=== PATIENT | female | born 1970 | race African-American/Black ===

== ENCOUNTER 2018-04-27 13:11 | Inpatient (IN) | payer OTHER ==
[2018-04-27 14:34] VITALS: BMI 23.7
--- NOTE | 2018-04-27 14:52 | HP ---
COWS - Scale Resting Pulse: 0= DE 80 or Below Sweatin= Chills/Flushing Restless Observation: 1= Difficult to Sit Still Pupil Size: 0= Normal to Room Light Bone or Joint Aches: 1= Mild Discomfort Runny Nose/ Eye Tearin= Nasal Congestion GI Upset > 30mins: 2= Nausea/Diarrhea Tremor Observation: 2= Slight Tremor Visible Yawning Observation: 1= 1-2x During Session Anxiety or Irritability: 2=Irritable/Anxious Goose Flesh Skin: 0=Smooth Skin COWS Score: 11 CIWA Score Nausea/Vomitin Muscle Tremors: 3 Anxiety: 4-Mod. Anxious/Guarded Agitation: 0-Normal Activity Paroxysmal Sweats: 1-Minimal Palms Moist Orientation: 1-Uncertain about Date Tacttile Disturbances: 1-Very Mild Itch/Numbness Auditory Disturbances: 0-None Visual Disturbances: 1-Very Mild Sensitivity Headache: 2-Mild CIWA-Ar Total Score: 16 - Admission Criteria OAS Guidelines: Admission for Medically Managed Detox: Requires at least one of the followin. CIWA greater than 12 2. Seizures within the past 24 hours 3. Delirium tremens within the past 24 hours 4. Hallucinations within the past 24 hours 5. Acute intervention needed for co occurring medical disorder 6. Acute intervention needed for co occurring psychiatric disorder 7. Severe withdrawal that cannot be handled at a lower level of care (continued vomiting, continued diarrhea, abnormal vital signs) requiring intravenous medication and/or fluids 8. Patient presents the following: CIWA greater than 12 Admission Criteria Met: Admission criteria met Admission ROS [facility] - [facility] Chief Complaint: I was doing good, I'm so sick, I need help Allergies/Adverse Reactions: Allergies Allergy/AdvReac Type Severity Reaction Status Date / Time No Known Allergies Allergy Verified 04/27/18 14:41 History of Present Illness: 47 yo woman here for detox from alcohol and opiates - also using cocaine. No seizures, has had black outs and overdoses. Patient reports being drug free for ten years but relapsed three years ago triggered by friend's . Never on methadone program (urine tox + methadone but she does not know why). Exam Limitations: Clinical Condition - Ebola screening Have you traveled outside of the country in the last 21 days: No (N) Have you had contact with anyone from an Ebola affected area: No Have you been sick,other than usual withdrawal symptoms: No Do you have a fever: No - Review of Systems Constitutional: Chills, Loss of Appetite, Malaise, Night Sweats, Changes in sleep, Weakness EENT: reports: Blurred Vision, Nose Congestion Respiratory: reports: No Symptoms reported Cardiac: reports: No Symptoms Reported GI: reports: Diarrhea, Nausea, Poor Appetite, Indigestion : reports: Dysuria Musculoskeletal: reports: No Symptoms Reported Integumentary: reports: No Symptoms Reported Neuro: reports: Numbness, Tremors Endocrine: reports: No Symptoms Reported Hematology: reports: No Symptoms Reported Psychiatric: reports: Judgement Intact, Mood/Affect Appropiate, Orientated x3, Anxious Other Systems: Reviewed and Negative Patient History - Patient Medical History Hx Asthma: No Hx Chronic Obstructive Pulmonary Disease (COPD): No Hx Cancer: No Hx Cardiac Disorders: No Hx Congestive Heart Failure: No Hx Hypertension: Yes Hx Hypercholesterolemia: No Hx Pacemaker: No HX Cerebrovascular Accident: No Hx Seizures: No Hx Dementia: No Hx Diabetes: Yes (with neuropathy) Hx Gastrointestinal Disorders: No Hx Liver Disease: No Hx Genitourinary Disorders: No Hx Sexually Transmitted Disorders: No Hx Renal Disease (ESRD): No Hx Thyroid Disease: No Hx Human Immunodeficiency Virus (HIV): No Hx Hepatitis C: No Hx Depression: Yes (denies meds or hospitalizations) Hx Suicide Attempt: No Hx Bipolar Disorder: No Hx Schizophrenia: No - Patient Surgical History Past Surgical History: No - PPD History Previous Implant?: Yes Documented Results: Negative w/proof Implanted On Prior R Admission?: No PPD to be Administered?: Yes - Reproductive History Patient is a Female of Child Bearing Age (11 -55 yrs old): Yes - Smoking Cessation Smoking history: Current every day smoker Have you smoked in the past 12 months: Yes Aproximately how many cigarettes per day: 5 Initiated information on smoking cessation: Yes 'Breaking Loose' booklet given: 04/27/18 (give on floor) - Substance & Tx. History Hx Alcohol Use: Yes Hx Substance Use: Yes Substance Use Type: Alcohol, Cocaine, Heroin, Marijuana, Opiates Hx Substance Use Treatment: Yes (detox , rehab years ago) - Substances Abused alcohol Route: Oral Frequency: Daily Amount used: 1 pint sandra; four 4-locos Age of first use: 20 Date of Last Use: 04/26/18 heroin Route: Injection Frequency: Daily Amount used: 1 bundle Age of first use: 20 Date of Last Use: 04/26/18 cocaine Route: Inhalation Frequency: Daily Amount used: 5 bags Age of first use: 20 Date of Last Use: 04/26/18 marijuana Route: Smoking Frequency: Daily Amount used: 1 blunt Age of first use: 25 Date of Last Use: 04/26/18 Family Disease History - Family Disease History Family Disease History: Other: Father (unkown - adopted), Mother (unknown - adopted), Son (two - healthy), Daughter (three - healthy) Admission Physical Exam [facility] - Vital Signs Vital Signs: Vital Signs - 24 hr 04/27/18 14:32 Temperature 95.9 F L Pulse Rate 74 Respiratory 17 Rate Blood Pressure 101/64 - Physical General Appearance: Yes: Nourished, Appropriately Dressed, Moderate Distress, Tremorous, Anxious HEENTM: Yes: EOMI, Hearing grossly Normal, Normocephalic, Normal Voice, Nasal Congestion Respiratory: Yes: Normal Breath Sounds, No Respiratory Distress Neck: Yes: No masses,lesions,Nodules Breast: Yes: Breast Exam Deferred Cardiology: Yes: Regular Rhythm, Regular Rate Abdominal: Yes: Soft Genitourinary: Yes: Frequency Back: Yes: Normal Inspection Musculoskeletal: Yes: full range of Motion, Gait Steady Extremities: Yes: Normal Inspection, Normal Range of Motion, Non-Tender Neurological: Yes: Alert, Motor Strength 5/5, Normal Mood/Affect, Normal Response Integumentary: Yes: Normal Color, Warm, Track Perry (no abscess noted - both arms) Lymphatic: Yes: Within Normal Limits - Diagnostic (1) Opioid dependence with withdrawal Current Visit: Yes Status: Chronic (2) Alcohol dependence with uncomplicated withdrawal Current Visit: Yes Status: Chronic (3) Nicotine dependence Current Visit: Yes Status: Chronic Qualifiers: Nicotine product type: cigarettes Substance use status: uncomplicated Qualified Code(s): F17.210 - Nicotine dependence, cigarettes, uncomplicated (4) Diabetes mellitus treated with oral medication Current Visit: Yes Status: Chronic (5) Neuropathy Current Visit: Yes Status: Chronic (6) Marijuana dependence Current Visit: Yes Status: Chronic (7) HTN (hypertension) Current Visit: Yes Status: Chronic Qualifiers: Hypertension type: essential hypertension Qualified Code(s): I10 - Essential (primary) hypertension Cleared for Admission [facility] - Detox or Rehab [facility] Level of Care: Medically Managed Detox Regimen/Protocol: Methadone/Librium [facility] Breath Alcohol Content Breath Alcohol Content: 0 Urine Pregancy Test - Result Urine Test Results: Negative - NO Line Present Urine Drug Screen - Results Drug Screen Negative: No Urine Drug Screen Results: THC-Marijuana, INDIA-Cocaine, OPI-Opiates, AMP- Amphetamines, MET-Methamphetamine Inpatient Rehab Admission - Rehab Decision to Admit Inpatient rehab admission?: No
[2018-04-27] MEDS ORDERED: MAGNESIUM HYDROX 2400MG/30ML ORAL SUSPENSION 30 ML CUP PO PRN (14:59)
[2018-04-27] MEDS ORDERED: MELATONIN 5 MG TABLETS PO PRN (14:59)
[2018-04-27] MEDS ORDERED: chlordiazePOXIDE HCL 10 MG CAPSULE PO PRN (14:59)
[2018-04-27] MEDS ORDERED: ACETAMINOPHEN 325 MG TABLET (FP) PO PRN (14:59)
[2018-04-27] MEDS ORDERED: MAG HYDROX/AL HYDROX/SIMETH 30 ML UNIT-DOSE CUP PO PRN (14:59)
[2018-04-27] MEDS ORDERED: MAGNESIUM CITRATE 300 ML BOTTLE PO PRN (14:59)
[2018-04-27] MEDS ORDERED: MENTHOL/PHENOL 1 EACH UD MM PRN (14:59)
[2018-04-27] MEDS ORDERED: NICOTINE POLACRILEX 4 MG GUM BUC PRN (14:59)
[2018-04-27] MEDS ORDERED: METHOCARBAMOL 500 MG TABLET PO PRN (14:59)
[2018-04-27] MEDS ORDERED: BISMUTH SUBSALICYLATE 524 MG/30 ML UD PO PRN (14:59)
[2018-04-27] MEDS ORDERED: cloNIDine HCL 0.1 MG TABLET PO PRN (14:59)
[2018-04-27] MEDS ORDERED: chlordiazePOXIDE HCL 25 MG CAPSULE PO ONE (16:45)
[2018-04-27] MEDS ORDERED: METHADONE HCL 10 MG TABLET PO ONE (16:45)
[2018-04-27] MEDS: GABAPENTIN 300 MG CAPSULE (FP) PO SCH ×2 (17:48→23:09)
[2018-04-27] MEDS ORDERED: METHADONE HCL 10 MG TABLET (FOR DETOX USE ONLY) PO ONE (23:00)
[2018-04-27] MEDS: chlordiazePOXIDE HCL 25 MG CAPSULE PO SCH (23:09)
[2018-04-27] MEDS: THIAMINE HCL 100 MG TABLET (FP) PO SCH (23:11)
[2018-04-28] MEDS: chlordiazePOXIDE HCL 25 MG CAPSULE PO SCH ×2 (05:49→13:30)
[2018-04-28] MEDS: GABAPENTIN 300 MG CAPSULE (FP) PO SCH ×3 (07:18→23:17)
[2018-04-28] MEDS: sitaGLIPtin PHOSPHATE 100 MG TABLET (FP) PO SCH (07:18)
[2018-04-28] MEDS ORDERED: METHADONE HCL 10 MG TABLET (FOR DETOX USE ONLY) PO ONE (10:00)
[2018-04-28] MEDS: PRENATAL VITAMINS W/ FOLIC ACID TABLET (FP) PO SCH (10:36)
[2018-04-28] MEDS: LISINOPRIL 10 MG TABLET (FP) PO SCH (10:36)
[2018-04-28] MEDS: amLODIPine BESYLATE 10 MG TABLET (FP) PO SCH (10:36)
[2018-04-28 10:50] LABS: ALBUMIN 2.9 g/dl (3.4-5.0); ALK PHOS 108 U/L (45-117); ANION GAP 8 MMOL/L (8-16); BILIRUBIN,TOTAL 0.1 mg/dL (0.2-1); BLOOD UREA NITROGEN 12 mg/dL (7-18); CALCIUM 8.7 mg/dL (8.5-10.1); CHLORIDE 104 mmol/L (98-107); CO2 27 mmol/L (21-32); GLUCOSE,RANDOM 50 mg/dL (74-106); POTASSIUM 3.3 mmol/L (3.5-5.1); SGOT/AST 16 U/L (15-37); SGPT/ALT 19 U/L (13-61); SODIUM 139 mmol/L (136-145)
[2018-04-28] MEDS: IBUPROFEN 400 MG TABLET (FP) PO PRN (11:27)
[2018-04-28 11:33] LABS: HEMATOCRIT 35.3 % (32.4-45.2); HEMOGLOBIN 11.8 GM/dL (10.7-15.3); MCH 28.8 pg (25.7-33.7); MCHC 33.5 g/dl (32.0-36.0); MEAN CELL VOLUME 85.9 fl (80-96); MEAN PLT VOLUME 7.8 fl (7.5-11.1); PLATELET COUNT 314 K/MM3 (134-434); RDW 15.8 % (11.6-15.6); WHITE BLOOD COUNT 7.9 K/mm3 (4.0-10.0)
--- NOTE | 2018-04-28 11:57 | EKG ---
Test Reason : Blood Pressure : / mmHG Vent. Rate : 063 BPM Atrial Rate : 063 BPM P-R Int : 142 ms QRS Dur : 084 ms QT Int : 458 ms P-R-T Axes : 068 068 040 degrees QTc Int : 468 ms NORMAL SINUS RHYTHM NORMAL ECG NO PREVIOUS ECGS AVAILABLE Confirmed by HERMES MUHAMMAD, MICHELLE ([id number]) on 04/28/2018 11:57:22 AM Referred By: Confirmed By:MICHELLE MIRZA MD
--- NOTE | 2018-04-28 13:34 | CONSULT ---
S Psychiatric Consult - Data Date of interview: 04/28/18 Identifying data: Ms Muñiz is a 47 years old Black female
--- NOTE | 2018-04-28 15:43 | PN ---
S CIWA - CIWA Score Nausea/Vomitin Muscle Tremors: 4-Moderate,w/Arms Extend Anxiety: 4-Mod. Anxious/Guarded Agitation: 3 Paroxysmal Sweats: 3 Orientation: 0-Oriented Tacttile Disturbances: 1-Very Mild Itch/Numbness Auditory Disturbances: 0-None Visual Disturbances: 0-None Headache: 1-Very Mild CIWA-Ar Total Score: 18 BHS COWS - Scale Resting Pulse: 1= RI 81-100 Sweatin=Flushed/Facial Moisture Restless Observation: 3= Extraneous Movement Pupil Size: 0= Normal to Room Light Bone or Joint Aches: 2= Severe Diffuse Aches Runny Nose/ Eye Tearin= Runny Nose/Eyes GI Upset > 30mins: 3= Vomiting/Diarrhea Tremor Observation of Outstretched Hands: 2= Slight Tremor Visible Yawning Observation: 0= None Anxiety or Irritability: 2=Irritable/Anxious Goose Flesh Skin: 0=Smooth Skin COWS Score: 17 S Progress Note (SOAP) Subjective: Tremor, chills, sweating, back pain Objective: 04/28/18 15:38 Last Vital Signs Temp Pulse Resp BP Pulse Ox 97.3 F L 82 18 101/61 04/28/18 14:09 04/28/18 14:09 04/28/18 14:09 04/28/18 14:09 Laboratory Tests 04/27/18 04/28/18 04/28/18 21:19 05:48 08:00 WBC 7.9 RBC 4.10 Hgb 11.8 Hct 35.3 MCV 85.9 MCH 28.8 MCHC 33.5 RDW 15.8 H Plt Count 314 MPV 7.8 Sodium Potassium Chloride Carbon Dioxide Anion Gap BUN Creatinine Creat Clearance w eGFR POC Glucometer 131 118 Random Glucose Calcium Total Bilirubin AST ALT Alkaline Phosphatase Total Protein Albumin 04/28/18 08:00 WBC RBC Hgb Hct MCV MCH MCHC RDW Plt Count MPV Sodium 139 Potassium 3.3 L Chloride 104 Carbon Dioxide 27 Anion Gap 8 BUN 12 Creatinine 1.0 Creat Clearance w eGFR 59.69 POC Glucometer Random Glucose 50 L Calcium 8.7 Total Bilirubin 0.1 L AST 16 ALT 19 Alkaline Phosphatase 108 Total Protein 7.0 Albumin 2.9 L Labs reviewed: K 3.3, serum glucose 50, FS glucose 118>>131 Assessment: 04/28/18 15:41 Withdrawal symptoms Noted with mild hypokalemia and hypoglycemia Plan: Continue detox Encouraged PO water hydration Hypokalemia: K Dur 40Meq PO x 2 doses, repeat BMP in AM Hypoglycemia: asymptomatic, fingerstick mildly hyperglycemic, repeat fasting glucose in AM
[2018-04-28] MEDS ORDERED: POTASSIUM CHLORIDE TABS 20 MEQ TABLET.ER (FP) PO ONE ×2 (15:44→21:00)
[2018-04-28] MEDS: chlordiazePOXIDE 5 MG CAPSULE PO SCH (23:16)
[2018-04-28] MEDS: THIAMINE HCL 100 MG TABLET (FP) PO SCH (23:17)
[2018-04-29] MEDS: chlordiazePOXIDE 5 MG CAPSULE PO SCH ×2 (05:33→13:30)
[2018-04-29] MEDS: sitaGLIPtin PHOSPHATE 100 MG TABLET (FP) PO SCH (06:19)
[2018-04-29] MEDS: GABAPENTIN 300 MG CAPSULE (FP) PO SCH ×3 (06:19→22:23)
[2018-04-29] MEDS ORDERED: METHADONE HCL 10 MG TABLET (FOR DETOX USE ONLY) PO ONE (10:00)
[2018-04-29] MEDS: PRENATAL VITAMINS W/ FOLIC ACID TABLET (FP) PO SCH (10:34)
[2018-04-29] MEDS: amLODIPine BESYLATE 10 MG TABLET (FP) PO SCH (10:34)
[2018-04-29] MEDS: LISINOPRIL 10 MG TABLET (FP) PO SCH (10:34)
[2018-04-29 10:42] LABS: ANION GAP 7 MMOL/L (8-16); BLOOD UREA NITROGEN 22 mg/dL (7-18); CALCIUM 7.9 mg/dL (8.5-10.1); CHLORIDE 104 mmol/L (98-107); CO2 25 mmol/L (21-32); CREATININE 0.9 mg/dL (0.55-1.3); GLUCOSE,RANDOM 75 mg/dL (74-106); POTASSIUM 4.3 mmol/L (3.5-5.1); SODIUM 136 mmol/L (136-145)
--- NOTE | 2018-04-29 14:35 | PN ---
S CIWA - CIWA Score Nausea/Vomitin-No Nausea/No Vomiting Muscle Tremors: 2 Anxiety: 3 Agitation: 1-Slight > Activity Paroxysmal Sweats: 2 Orientation: 0-Oriented Tacttile Disturbances: 2-Mild Itch/Numbness/Burn Auditory Disturbances: 0-None Visual Disturbances: 2-Mild Sensitivity Headache: 0-None Present CIWA-Ar Total Score: 12 BHS COWS - Scale Resting Pulse: 1= ID 81-100 Sweatin= Chills/Flushing Restless Observation: 1= Difficult to Sit Still Pupil Size: 0= Normal to Room Light Bone or Joint Aches: 2= Severe Diffuse Aches Runny Nose/ Eye Tearin= None GI Upset > 30mins: 0= None Tremor Observation of Outstretched Hands: 0= None Yawning Observation: 1= 1-2x During Session Anxiety or Irritability: 2=Irritable/Anxious Goose Flesh Skin: 3=Piloerection COWS Score: 11 S Progress Note (SOAP) Subjective: Body Aches, Anxious, Sweating. Objective: PATIENT A & O X 3, OBSERVED AMBULATING ON UNIT. IN NO ACUTE DISTRESS. 04/29/18 14:31 Vital Signs Temperature 99.7 F H 04/29/18 09:31 Pulse Rate 85 04/29/18 09:31 Respiratory Rate 18 04/29/18 09:31 Blood Pressure 111/65 04/29/18 09:31 O2 Sat by Pulse Oximetry (%) Laboratory Tests 04/27/18 04/28/18 04/28/18 21:19 05:48 08:00 WBC 7.9 RBC 4.10 Hgb 11.8 Hct 35.3 MCV 85.9 MCH 28.8 MCHC 33.5 RDW 15.8 H Plt Count 314 MPV 7.8 Sodium Potassium Chloride Carbon Dioxide Anion Gap BUN Creatinine Creat Clearance w eGFR POC Glucometer 131 118 Random Glucose Calcium Total Bilirubin AST ALT Alkaline Phosphatase Total Protein Albumin RPR Titer 04/28/18 04/28/18 04/28/18 08:00 08:00 16:46 WBC RBC Hgb Hct MCV MCH MCHC RDW Plt Count MPV Sodium 139 Potassium 3.3 L Chloride 104 Carbon Dioxide 27 Anion Gap 8 BUN 12 Creatinine 1.0 Creat Clearance w eGFR 59.69 POC Glucometer 99 Random Glucose 50 L Calcium 8.7 Total Bilirubin 0.1 L AST 16 ALT 19 Alkaline Phosphatase 108 Total Protein 7.0 Albumin 2.9 L RPR Titer Nonreactive 04/29/18 04/29/18 05:32 08:00 WBC RBC Hgb Hct MCV MCH MCHC RDW Plt Count MPV Sodium 136 Potassium 4.3 Chloride 104 Carbon Dioxide 25 Anion Gap 7 L BUN 22 H Creatinine 0.9 Creat Clearance w eGFR > 60 POC Glucometer 104 Random Glucose 75 Calcium 7.9 L Total Bilirubin AST ALT Alkaline Phosphatase Total Protein Albumin RPR Titer LABS NOTED. RESULTS OF BMP NOTED. K LEVEL NOW NOTED TO BE WITHIN NORMAL RANGE. CA LEVEL NOW NOTED TO BE LOW. 04/29/18 14:34 Assessment: 04/29/18 14:33 WITHDRAWAL SYMPTOMS. HYPOCALCEMIA. Plan: CONTINUE DETOX. INCREASE DAILY PO FLUID INTAKE. OSCAL, 500 MG PO BID.
[2018-04-29] MEDS: CALCIUM (OYSTER SHELL) 500 MG TABLET (FP) PO SCH ×2 (15:00→22:23)
[2018-04-29] MEDS: IBUPROFEN 400 MG TABLET (FP) PO PRN (16:26)
[2018-04-29] MEDS ORDERED: chlordiazePOXIDE HCL 10 MG CAPSULE PO PRN (21:00)
[2018-04-29] MEDS: THIAMINE HCL 100 MG TABLET (FP) PO SCH (22:23)
[2018-04-29] MEDS: chlordiazePOXIDE HCL 10 MG CAPSULE PO SCH (22:23)
[2018-04-30] MEDS: IBUPROFEN 400 MG TABLET (FP) PO PRN ×2 (00:47→22:22)
[2018-04-30] MEDS: sitaGLIPtin PHOSPHATE 100 MG TABLET (FP) PO SCH (06:07)
[2018-04-30] MEDS: chlordiazePOXIDE HCL 10 MG CAPSULE PO SCH ×3 (06:07→21:50)
[2018-04-30] MEDS: GABAPENTIN 300 MG CAPSULE (FP) PO SCH ×3 (06:34→22:22)
--- NOTE | 2018-04-30 09:59 | PN ---
S Progress Note (SOAP) Subjective: alert,irritable,anxious,interrupted sleep Objective: 04/30/18 09:58 Vital Signs Temperature 98.8 F 04/30/18 09:25 Pulse Rate 77 04/30/18 09:25 Respiratory Rate 16 04/30/18 09:25 Blood Pressure 122/71 04/30/18 09:25 O2 Sat by Pulse Oximetry (%) Assessment: 04/30/18 09:58 withdrawal symptom Plan: continue detox,discharge in am
[2018-04-30] MEDS ORDERED: METHADONE HCL 10 MG TABLET (FOR DETOX USE ONLY) PO ONE (10:00)
[2018-04-30] MEDS: PRENATAL VITAMINS W/ FOLIC ACID TABLET (FP) PO SCH (10:26)
[2018-04-30] MEDS: amLODIPine BESYLATE 10 MG TABLET (FP) PO SCH (10:26)
[2018-04-30] MEDS: LISINOPRIL 10 MG TABLET (FP) PO SCH (10:26)
[2018-04-30] MEDS: CALCIUM (OYSTER SHELL) 500 MG TABLET (FP) PO SCH ×2 (10:26→22:23)
[2018-04-30] MEDS: THIAMINE HCL 100 MG TABLET (FP) PO SCH (22:22)
[2018-05-01] MEDS: sitaGLIPtin PHOSPHATE 100 MG TABLET (FP) PO SCH (05:59)
[2018-05-01] MEDS ORDERED: METHADONE HCL 5 MG TABLET (FOR DETOX USE ONLY) PO ONE (06:00)
--- NOTE | 2018-05-01 08:42 | DS ---
[facility] Detox Discharge Summary Admission Date: 04/27/18 Discharge Date: 05/01/18 - History Present History: Alcohol Dependence, Cannabis Dependence, Opioid Dependence - Physical Exam Results Vital Signs: Vital Signs Temperature 97.1 F L 05/01/18 06:50 Pulse Rate 72 05/01/18 06:50 Respiratory Rate 20 05/01/18 06:50 Blood Pressure 104/66 05/01/18 06:50 O2 Sat by Pulse Oximetry (%) - Treatment Hospital Course: Detox Protocol Followed, Detoxed Safely, Responded well, Discharged Condition Good, Rehab Referral Accepted - Medication Discharge Medications: Ambulatory Orders Amlodipine Besylate [Norvasc -] 10 mg PO DAILY 04/27/18 Clonidine HCl [Catapres] 0.3 mg PO DAILY 04/27/18 Gabapentin [Neurontin -] 300 mg PO Q8H 04/27/18 Lisinopril 10 mg PO DAILY 04/27/18 Sitagliptin Phosphate [Januvia -] 100 mg PO DAILY@0700 04/27/18 - Diagnosis (1) Hypocalcemia Current Visit: Yes Status: Acute (2) Alcohol dependence with uncomplicated withdrawal Current Visit: Yes Status: Chronic (3) Diabetes mellitus treated with oral medication Current Visit: Yes Status: Chronic (4) HTN (hypertension) Current Visit: Yes Status: Chronic Qualifiers: Hypertension type: essential hypertension Qualified Code(s): I10 - Essential (primary) hypertension (5) Marijuana dependence Current Visit: Yes Status: Chronic (6) Neuropathy Current Visit: Yes Status: Chronic (7) Nicotine dependence Current Visit: Yes Status: Chronic Qualifiers: Nicotine product type: cigarettes Substance use status: uncomplicated Qualified Code(s): F17.210 - Nicotine dependence, cigarettes, uncomplicated (8) Opioid dependence with withdrawal Current Visit: Yes Status: Chronic - AMA Did Patient Leave Against [facility] Advice[facility]
[2018-05-01 09:32] VITALS: BP 122/75; PULSE 85; TEMP 98.9
[2018-05-01] MEDS: PRENATAL VITAMINS W/ FOLIC ACID TABLET (FP) PO SCH (09:35)
[2018-05-01] MEDS: amLODIPine BESYLATE 10 MG TABLET (FP) PO SCH (09:35)
[2018-05-01] MEDS: LISINOPRIL 10 MG TABLET (FP) PO SCH (09:35)
== END 2018-05-01 11:39 | disposition home or self-care (01) | DRG 773 ==
LOC: YASAS 13:11 → Y6N 16:36
PROVIDERS: ADMIT Surgery; ATTEND Surgery
PROC: HZ2ZZZZ Detoxification Services for Substance Abuse Treatment (ICD-10-PCS; principal; 2018-04-27)
DX: F11.23 Opioid dependence with withdrawal (principal); F10.230 Alcohol dependence with withdrawal, uncomplicated; F14.20 Cocaine dependence, uncomplicated; F12.20 Cannabis dependence, uncomplicated; F17.210 Nicotine dependence, cigarettes, uncomplicated; I10 Essential (primary) hypertension; E11.40 Type 2 diabetes mellitus with diabetic neuropathy, unspecified; E83.51 Hypocalcemia; E87.6 Hypokalemia; Z79.84 Long term (current) use of oral hypoglycemic drugs
CPT/HCPCS: 36415; 80048; 80053; 82962; 85027; 86593; 93005; 93010